=== PATIENT | female | born 1980 | race Caucasian/White ===

== ENCOUNTER → 2018-12-18 | Outpatient (CLI) | payer BC ==
--- NOTE | 2018-12-18 11:20 | Diagnostic Imaging Report ---
EXAMINATION: Thoracic spine INDICATION: Back pain AP, lateral and swimmer's views were obtained. The lateral view does show straightening of the cervical spine. This may be secondary to muscle spasm and/or positioning. The vertebral body heights are within normal limits and the intervertebral spaces are fairly well-maintained. There is no fracture or acute bony abnormality evident. There is no sign of a paraspinal mass. IMPRESSION: There is no evidence for an acute bony abnormality. Dictated by: Dictated on workstation # [id number]
--- NOTE | 2018-12-18 11:31 | Diagnostic Imaging Report ---
EXAMINATION: Cervical spine INDICATION: Neck pain AP, lateral, and oblique views and odontoid view of the cervical spine were obtained. There are no prior studies available for comparison. The lateral view shows mild reversal of the normal lordosis of the cervical spine. This may secondary to muscle spasm and/or positioning. The vertebral body heights are within normal limits and the intervertebral spaces are well-maintained. The oblique views failed to show any sign of a pars defect. Bony foraminal encroachment. There is no fracture or acute bony abnormality noted. There is no sign of retropharyngeal edema. The lung apices are clear. IMPRESSION: 1. There is reversal of the normal lordosis of the cervical spine. This may secondary to muscle spasm and/or positioning. There is no acute bony abnormality noted. 2. If there is clinical concern regarding spinal stenosis or nerve root encroachment, then MRI should be considered for further study. Dictated by: Dictated on workstation # [id number]
== END ==
LOC: RAD FS 10:25
PROVIDERS: ATTEND Nurse Practitioner
DX: M54.2 Cervicalgia (principal); M54.6 Pain in thoracic spine
CPT/HCPCS: 72050; 72072

== ENCOUNTER → 2021-09-28 | Outpatient (CLI) | payer OTHER ==
--- NOTE | 2021-09-28 14:01 | Diagnostic Imaging Report ---
INDICATION: Palpable lumps in the right breast as well as right nipple discharge. COMPARISON: No prior mammograms are available for comparison. This is a baseline study. TECHNIQUE: 2D and 3D bilateral diagnostic mammography was performed with CAD. BB markers were placed at the areas of palpable abnormality in the right breast. FINDINGS: Both breasts show marked parenchymal heterogeneity and increased density, limiting the sensitivity of mammography. No discrete mass or malignant-appearing microcalcifications are seen. Axillae are unremarkable. IMPRESSION: No mammographic features suspicious for malignancy are identified. Even so, sonographic interrogation of the areas of palpable abnormality in the right breast is recommended. In addition, sonographic interrogation of the retroareolar right breast is recommended due to nipple discharge. ACR BI-RADS Category 0: Incomplete. (Needs additional imaging evaluation). Result letter will be mailed to the patient. Note: At least 10% of breast cancer is not imaged by mammography. Dictated by: Dictated on workstation # [id number]
--- NOTE | 2021-09-28 14:09 | Diagnostic Imaging Report ---
PROCEDURE: Pelvic comp/transvaginal sonogram. TECHNIQUE: Complete transabdominal and transvaginal pelvic ultrasound was performed. In addition, limited pelvic Doppler was performed. INDICATION: Right lower quadrant pain. FINDINGS: The uterus is anteverted measuring 6.9 x 3.7 x 5.9 cm. The endometrium is 7 mm in thickness. There appears to be a small nabothian cyst of approximately 5 mm in size. The right ovary measures 2.4 x 1.5 x 2.1 cm and the left ovary measures 2.1 x 2.2 x 1.6 cm. There is blood flow to both ovaries. The right ovary does contain an approximately 16 mm follicle. No adnexal mass or free fluid is detected. IMPRESSION: 16 mm right ovarian cyst. The study is otherwise unremarkable. Dictated by: Dictated on workstation # [id number]
--- NOTE | 2021-09-28 14:42 | Diagnostic Imaging Report ---
INDICATION: Palpable lumps in the right breast as well as right nipple discharge. COMPARISON: Correlation is made with the diagnostic mammogram from earlier this same day. FINDINGS: Sonographic interrogation of the areas of lump was performed. This corresponds to the 9 o'clock location of the right breast as well as the 2 o'clock location of the right breast. The 9 o'clock location was unremarkable. The 2 o'clock location does show a probable small cluster of cysts in aggregate measuring 6 mm x 3 mm x 6 mm. No concerning sonographic abnormality is seen. The retroareolar region was also evaluated due to nipple discharge. No underlying ductal dilatation, ectasia, or mass is identified. IMPRESSION: Benign appearing nodule at the 2 o'clock location of the right breast, likely a small cluster of cysts. No other significant abnormality is detected. ACR BI-RADS Category 2: Benign findings. Dictated by: Dictated on workstation # [id number]
== END ==
LOC: RAD 13:00
PROVIDERS: ATTEND Obstetrics & Gynecology
DX: N63.12 Unspecified lump in the right breast, upper inner quadrant (principal); N60.01 Solitary cyst of right breast; N83.201 Unspecified ovarian cyst, right side; N64.52 Nipple discharge
CPT/HCPCS: 76830; 76856; 77062; 77066

== ENCOUNTER → 2021-10-22 | Outpatient (CLI) | payer OTHER ==
[2021-10-22 07:41] LABS: BASOPHILS % (AUTO) 0 % (0-10); EOSINOPHILS # (AUTO) 0.1 10^3/uL (0.0-0.3); EOSINOPHILS % (AUTO) 1 % (0-10); HEMATOCRIT 41 % (35-52); HEMOGLOBIN 13.6 g/dL (11.5-16.0); LYMPHOCYTES # (AUTO) 1.7 10^3/uL (1.0-4.0); LYMPHOCYTES % (AUTO) 37 % (12-44); MEAN CORPUSCULAR HEMOGLOBIN 29 pg (25-34); MEAN CORPUSCULAR HGB CONC 33 g/dL (32-36); MEAN CORPUSCULAR VOLUME 88 fL (80-99); MONOCYTES # (AUTO) 0.5 10^3/uL (0.0-1.0); MONOCYTES % (AUTO) 10 % (0-12); NEUTROPHILS # (AUTO) 2.4 10^3/uL (1.8-7.8); NEUTROPHILS % (AUTO) 52 % (42-75); PLATELET COUNT 176 10^3/uL (130-400); WHITE BLOOD COUNT 4.7 10^3/uL (4.3-11.0)
[2021-10-22 08:16] LABS: CARBON DIOXIDE 27 MMOL/L (21-32); CHLORIDE 103 MMOL/L (98-107); SODIUM 139 MMOL/L (135-145)
[2021-10-22 08:17] LABS: ALANINE AMINOTRANSFERASE 14 U/L (0-55); ALBUMIN 4.7 GM/DL (3.2-4.5); ALKALINE PHOSPHATASE 75 U/L (40-136); BILIRUBIN,TOTAL 0.5 MG/DL (0.1-1.0); BUN/CREATININE RATIO 21; CALCIUM 9.3 MG/DL (8.5-10.1); CREATININE SERUM 0.84 MG/DL (0.60-1.30); GFR ESTIMATED 91; GLUCOSE 106 MG/DL (70-105); TOTAL PROTEIN 6.8 GM/DL (6.4-8.2)
[2021-10-22 15:28] LABS: TRIGLYCERIDES 30 MG/DL (<150); VLDL CHOLESTEROL 6 MG/DL (5-40)
[2021-10-22 15:33] LABS: CHOLESTEROL 174 MG/DL (< 200)
[2021-10-22 15:34] LABS: HDL CHOLESTEROL 78 MG/DL (40-60)
== END ==
LOC: LAB FS 07:20
PROVIDERS: ATTEND Registered Nurse Emergency
DX: Z00.00 Encounter for general adult medical examination without abnormal findings (principal); Z23 Encounter for immunization; K21.9 Gastro-esophageal reflux disease without esophagitis; R00.2 Palpitations
CPT/HCPCS: 36415; 80053; 80061; 84443; 85025

== ENCOUNTER → 2021-12-22 | Outpatient (CLI) | payer OTHER ==
--- NOTE | 2021-12-22 08:37 | Diagnostic Imaging Report ---
PROCEDURE: US Gallbladder. TECHNIQUE: Multiple real-time grayscale images were obtained over the right upper quadrant in various projections. INDICATION: Epigastric pain. Liver is normal in size at 16 cm. Portal vein is patent and shows normal direction of flow. No discrete liver mass is detected. Gallbladder is without stones or sludge. There is no wall thickening or pericholecystic fluid. There is no biliary duct dilatation. Pancreas is unremarkable. Aorta is nonaneurysmal. IVC is patent. Right kidney is without calculi or hydronephrosis. There is no ascites. IMPRESSION: Unremarkable gallbladder ultrasound. Dictated by: Dictated on workstation # [id number]
== END ==
LOC: RAD 08:00
PROVIDERS: ATTEND Surgery
DX: R10.13 Epigastric pain (principal)
CPT/HCPCS: 76705

== ENCOUNTER → 2022-01-06 | Outpatient (CLI) | payer OTHER ==
[~2022-01-06] MED LIST: CATHETER FLUSH 10 ML SYR IVP PRN
--- NOTE | 2022-01-06 12:11 | Diagnostic Imaging Report ---
INDICATION: Epigastric pain. COMPARISON: None Tc-99m Choletec 5.12 mCi IV followed by 8 ounces of oral ensure FINDINGS: The upper abdomen was imaged for 60 minutes with the gamma camera. There is normal appearance of activity in the liver. There is activity in the common duct and gallbladder by 60 minutes. After 60 minutes, the patient received 8 ounces of oral ensure. After 45 minutes with additional imaging, the gallbladder ejection fraction was calculated to be 75% which is normal. IMPRESSION: Normal hepatobiliary study with GBEF of 75%. Dictated by: Dictated on workstation # [id number]
== END ==
LOC: CARD 10:00
PROVIDERS: ATTEND Surgery
DX: R10.13 Epigastric pain (principal)
CPT/HCPCS: 78227

== ENCOUNTER 2022-02-02 05:47 | Outpatient (CLI) | payer OTHER ==
[~2022-02-02] VITALS: Ht 167.6 cm; Wt 59.9 kg
[2022-02-02] MEDS ORDERED: SUCR1TAB PO (14:51)
[2022-02-02] MEDS ORDERED: PANT40TA52 PO (14:51)
== END 2022-02-02 14:59 | disposition home or self-care (01) ==
LOC: PREOP 05:47
PROVIDERS: ATTEND Surgery
DX: Z01.818 Encounter for other preprocedural examination (principal)

== ENCOUNTER → 2022-02-11 | Outpatient (CLI) | payer OTHER ==
[~2022-02-11] MED LIST changes: -CATHETER FLUSH 10 ML SYR IVP PRN; +PANT40TA52 PO; +SUCR1TAB PO
== END ==
LOC: LAB FS 07:09
PROVIDERS: ATTEND Surgery
DX: Z20.822 Contact with and (suspected) exposure to COVID-19 (principal)
CPT/HCPCS: 87636

== ENCOUNTER 2022-02-15 08:05 | Day surgery (SDC) | payer OTHER ==
[~2022-02-15] VITALS: Ht 167 cm; Wt 59.9 kg
[2022-02-15] MEDS ORDERED: LACTATED RINGERS 1,000 ML IV STA (08:08)
[2022-02-15] MEDS ORDERED: HURRICAINE EXT TUBE (BENZOCAINE) XX PRN (08:15)
[2022-02-15 08:25] VITALS: BP 118/64
[2022-02-15] MEDS ORDERED: MIDAZOLAM 2 MG/2 ML (VERSED) VIAL ONE (08:56)
[2022-02-15] MEDS ORDERED: PROPOFOL INJECTION 50 ML IV ONE (08:57)
[2022-02-15 09:15] VITALS: BP 98/54
--- NOTE | 2022-02-15 09:16 | Progress Note-Post Operative ---
Post-Operative Progess Note Surgeon (s)/Blender/Braze Applicator (s) Surgeon PURA REEVES DO Blender/Braze Applicator: na Pre-Operative Diagnosis epigastric pain Post-Operative Diagnosis gastric polyps Procedure & Operative Findings Date of Procedure 02/15/22 Procedure Performed/Findings egd c biopsies Anesthesia Type per wood floor refinisher Estimated Blood Loss Estimated blood loss (mL): none Specimens/Packing Specimens Removed antrum, ge PURA REEVES DO Feb 15, 2022 09:16
[2022-02-15 09:20] VITALS: BP 91/54
--- NOTE | 2022-02-15 09:20 | Discharge Inst-Simple/Standard ---
Discharge Inst-Standard Patient Instructions/Follow Up Plan of Care/Instructions/FU: 2 weeks Sheri Activity as Tolerated: Yes Discharge Diet: Regular Diet Other Inst to Patient PRUA REEVES DO Feb 15, 2022 09:20
[2022-02-15 09:25] VITALS: BP 91/55
[2022-02-15 09:45] VITALS: BP 98/63
--- NOTE | 2022-02-15 13:57 | Anesthesia-General Post-Op ---
MAC Patient Condition Mental Status/LOC: Same as Preop Cardiovascular: Satisfactory Nausea/Vomiting: Absent Respiratory: Satisfactory Pain: Controlled Complications: Absent Post Op Complications Complications None Follow Up Care/Instructions Patient Instructions None needed. Anesthesiology Discharge Order Discharge Order Patient is doing well, no complaints, stable vital signs, no apparent adverse anesthesia problems. No complications reported per nursing. ERENDIRA GARCIA CRNA Feb 15, 2022 13:57
--- NOTE | 2022-02-15 14:46 | OPERATIVE REPORT ---
DATE OF SERVICE: 02/15/2022 PREOPERATIVE DIAGNOSES: Epigastric abdominal pain. POSTOPERATIVE DIAGNOSIS: Gastric polyps. PROCEDURE: EGD with biopsies. ANESTHESIA: Per SUPERVISOR FABRICATION. SURGEON: Pura Wade DO ESTIMATED BLOOD LOSS: None. COMPLICATIONS: None. SPECIMENS: Antrum, GE junction. INDICATIONS: The patient is a 41-year-old female needing EGD for further evaluation for epigastric abdominal pain. Her gallbladder workup was borderline. We discussed risks and benefits of procedure and wishes to proceed. Consent was signed in the chart. DESCRIPTION OF PROCEDURE: The patient was taken to the endoscopy suite, placed in the left lateral recumbent position. Timeout was performed. Scope was inserted in mouth, down the esophagus, stomach and into the duodenum without difficulty. There were no polyps, masses or ulcerations within the duodenum. Scope was slowly retracted back into the stomach, benign appearing polyps throughout the stomach. No masses or ulcerations. Biopsy of the antrum was obtained. Scope was retroflexed noting no other pathology. Scope was returned to its normal position, slowly withdrawn to distal esophagus. No polyps, masses or ulcerations. Biopsy of GE junction was obtained. Scope was slowly retracted back to completely remove noting no other pathology. The patient tolerated procedure well without any complications. She was taken to recovery room in stable condition. RECOMMENDATIONS: Continue on current medications. We will await biopsy results. We will consider cholecystectomy. Job ID: [id number] DocumentID: [id number] Dictated Date: 02/15/2022 09:23:08 Pediatric Genetic Counselor Date: 02/15/2022 14:46:04 Dictated By: PURA WADE DO
== END 2022-02-15 10:02 | disposition home or self-care (01) ==
LOC: ENDO 08:05
PROVIDERS: ATTEND Surgery
DX: K31.7 Polyp of stomach and duodenum (principal); K31.9 Disease of stomach and duodenum, unspecified; K29.70 Gastritis, unspecified, without bleeding; K21.00 Gastro-esophageal reflux disease with esophagitis, without bleeding; Z87.891 Personal history of nicotine dependence; Z79.899 Other long term (current) drug therapy; Z28.310 Unvaccinated for COVID-19
CPT/HCPCS: 84703; 88305

== ENCOUNTER → 2022-03-07 | Outpatient (CLI) | payer OTHER | LOC: PREOP 11:35 | PROVIDERS: ATTEND Surgery | DX: Z01.818 Encounter for other preprocedural examination (principal); K82.8 Other specified diseases of gallbladder ==